=== PATIENT | female | born 1970 | race Caucasian/White ===

== ENCOUNTER 2021-04-04 10:28 | Outpatient (CLI) | payer MEDICARE, MEDICAID, SELFPAY ==
--- NOTE | 2021-04-04 10:33 | MM_ITS ---
WS: [id number] BILATERAL DIGITAL SCREENING MAMMOGRAPHY WITH CAD CLINICAL INFORMATION: SCREENING HISTORY: Screening mammogram. No current complaints. COMPARISON: TECHNIQUE: Bilateral CC and MLO views. FINDINGS: Scattered fibroglandular densities bilaterally. No suspicious focal mass, asymmetry, calcifications, or architectural distortion. No evidence of malignancy. A few punctate calcifications. MM/[id number] IMPRESSION: BI-RADS: 2-Benign FOLLOW UP: 1 Year Follow-up Recommend return to annual screening mammography.
== END 2021-04-04 10:29 | disposition home or self-care (01) ==
LOC: RADSHAW 10:32
PROVIDERS: Family Provider Family Medicine; PCP Family Medicine; Visit Provider Family Medicine
DX: Z12.31 Encounter for screening mammogram for malignant neoplasm of breast (principal)
CPT/HCPCS: 77067

== ENCOUNTER 2022-04-26 12:38 | Outpatient (CLI) | payer MEDICARE, MEDICAID, SELFPAY ==
--- NOTE | 2022-04-26 13:04 | MM_ITS ---
WS: [id number] BILATERAL 3D TOMOSYNTHESIS DIGITAL SCREENING MAMMOGRAPHY WITH CAD CLINICAL INFORMATION: SCREENING HISTORY: Screening mammogram. No current complaints. COMPARISON: April 04, 2021 TECHNIQUE: Bilateral CC and MLO views. FINDINGS: Scattered fibroglandular densities bilaterally. A few incidental punctate calcifications. Incidental lymph node posterior depth RIGHT breast. No suspicious focal mass, asymmetry, calcifications, or arch itectural distortion. No evidence of malignancy. MM/[id number] IMPRESSION: BI-RADS: 2-Benign FOLLOW UP: 1 Year Follow-up Recommend return to annual screening mammography.
== END 2022-04-26 12:39 | disposition home or self-care (01) ==
LOC: RAD 12:38
PROVIDERS: PCP Nurse Practitioner Family; Visit Provider Nurse Practitioner Family
DX: Z12.31 Encounter for screening mammogram for malignant neoplasm of breast (principal)
CPT/HCPCS: 77063; 77067

== ENCOUNTER 2023-03-06 19:01 | Emergency (ER) | payer MEDICARE, MEDICAID, SELFPAY ==
[2023-03-06 19:10] VITALS: BP 136/79; PULSE 102; RESP 18; TEMP 36.7; O2SAT 95; BMI 42.0
--- NOTE | 2023-03-06 19:28 | ED_ITS ---
HPI - Back Pain/Injury General: Chief Complaint: Back Pain/Injury Stated Complaint: lower back pain Time Seen by Provider: 03/06/23 19:13 PFSH ED PFSH: Medical History (Updated 03/06/23 @ 19:29 by Chano Rangel MD) Impacted cerumen of right ear Course Vital Signs: Vital signs: Vital Signs Temperature 98.0 F 03/06/23 19:10 Pulse Rate 102 H 03/06/23 19:10 Respiratory Rate 18 03/06/23 19:10 Blood Pressure 136/79 03/06/23 19:10 Pulse Oximetry 95 03/06/23 19:10 Oxygen Delivery Me thod Room Air 03/06/23 19:10 Discharge Plan Discharge Patient Disposition: Home Clinical Impression: Insect bite Condition: Stable Prescriptions: No Action metformin 1,000 mg tablet extended release 24 hr 1,000 mg PO BID Farxiga 5 mg tablet 5 mg PO DAILY Januvia 25 mg tablet 25 mg PO DAILY levothyroxine [Synthroid] 125 mcg tablet 125 mcg PO DAILY amitriptyline 10 mg tablet 10 mg PO BID lisinopril 5 mg tablet 5 mg PO DAILY alprazolam 0.25 mg tablet 0.25 mg PO DAILY PRN oxybutynin chloride 5 mg tablet 5 mg PO DAILY simvastatin [Zocor] 10 mg tablet 10 mg PO DAILY montelukast 10 mg tablet 10 mg PO DAILY Referrals: Lynnette Gay FNP [Primary Care Provider] - 1-3 days Discharge Diet: Advance as tolerated Discharge Activity: Resume usual activity Patient Instructions: Opioid Safety, Pain Management Coding Level of Care Code ED Physiotherapist'S Assistant for Jayda Solano
[2023-03-06 19:33] VITALS: BP 152/87; PULSE 107; RESP 18; O2SAT 93
--- NOTE | 2023-03-06 19:42 | ED_ITS ---
HPI - Back Pain/Injury General: Chief Complaint: Back Pain/Injury Stated Complaint: lower back pain Time Seen by Provider: 03/06/23 19:13 History of Present Illness: Patient is a 52-year-old female comes to the ED with lower back pain. Patient says symptoms started a week ago. She states that she has been doing a lot of housecleaning, bending and lifting and thinks she might of strained a muscle in her lower back. Denies any fall or trauma to cause back pain. She rates her ba ck pain currently an 8 out of 10. She has been taking Tylenol daily to help with pain. Denies any bladder or bowel incontinence, pelvic anesthesia or any weakness to lower extremities. Associated symptoms: Deny abdominal pain, chills, dysuria, fatigue, fever(s), hematuria, nausea or vomiting Review of Systems Const: Denies: fever(s), chills or fatigue Eyes: Denies: change in vision or eye discomfort ENMT: Denies: throat pain, odynophagia, nasal discharge or nasal congestion Card: Denies: chest pain, palpitations, edema, swelling of feet/ankles, dyspnea on exertion or orthopnea Resp: Denies: dyspnea, productive cough or non-productive cough GI: Denies: abdominal pain, nausea, vomiting, diarrhea, constipation or hematochezia : Denies: flank pain, dysuria or hematuria Musc: Denies: neck pain, back pain or extremity swelling Skin/Breast: Denies: rash or new lesions Neuro: Denies: headache(s), numbness in extremities or weakness in extremities [facility] ED PFSH: Medical History (Updated 03/06/23 @ 23:57 by SHARON Cormier) Impacted cerumen of right ear No pertinent family history Surgical History (Updated 03/06/23 @ 23:57 by SHARON Cormier) No pertinent past surgical history Physical Exam Const: COMMON NORMALS: patient oriented x3 HENMT: COMMON NORMALS: normocephalic HEAD & SCALP: normocephalic MOUTH: Normal oral and palatal mucosa present THROAT: posterior oropharynx normal and uvula midline Neck/C-Spine: COMMON NORMALS: supple GENERAL: Yes normal visual inspection Resp: COMMON NORMALS: normal respiratory effort, No retractions, No use of accessory muscles and clear to auscultation bilaterally AUSCULTATION: clear to auscultation bilaterally Cardio: COMMON NORMALS: regular rate, regular rhythm, S1 normal heart sound present, S2 normal heart sound present, No gallops present (Cardio), No clicks present (Cardio), No murmurs present (Cardio) and Peripheral pulses 2+ throughout RATE: regular rate RHYTHM: regular rhythm HEART SOUNDS: S1 normal heart sound present and S2 normal heart sound present PERIPHERAL PULSES: Peripheral pulses 2+ throughout GI: COMMON NORMALS: Normal to inspection, nondistended, normoactive bowel sounds present, Soft to palpation, non-tender and no masses PALPATION: Yes Soft to palpation : COMMON NORMALS: Yes no CVA tenderness BLADDER/KIDNEY EXAM: Yes no CVA tenderness Back/Pelvis: COMMON NORMALS: no CVA tenderness LUMBAR SPINE/LOWER BACK: No lumbar spinal tenderness and Yes paraspinal muscle tenderness Lumbar paraspinal muscle tenderness: bilateral Extremity: COMMON NORMALS: normal to inspection Neuro: COMMON NORMALS: patient oriented x3 GAIT: Yes Normal gait present Skin: GENERAL SKIN EXAM: dry skin Course Vital Signs: Vital signs: Vital Signs Temperature 98.0 F 03/06/23 19:10 Pulse Rate 101 H 03/06/23 19:57 Respiratory Rate 18 03/06/23 19:57 Blood Pressure 153/100 03/06/23 19:57 Pulse Oximetry 91 03/06/23 19:57 Oxygen Delivery Me thod Room Air 03/06/23 19:33 MDM - Back Pain/Injury Medical Decision Making Patient is a 52-year-old female comes to the ED with lower back pain. Patient says symptoms started a week ago. She states that she has been doing a lot of housecleaning, bending and lifting and thinks she might of strained a muscle in her lower back. Denies any fall or trauma to cause back pain. She rates her back pain currently an 8 out of 10. She has been taking Tylenol daily to help with pain. Denies any bladder or bowel incontinence, pelvic anesthesia or any weakness to lower extremities. Vitals are stable. Bilateral lumbar paraspinal muscle tenderness and no lumbar spinal tenderness. Patient diagnosed with a str ain of lumbar region. She was given a dose of Toradol and a muscle relaxer here in the ED. She is stable for discharge home and told to continue taking her muscle relaxer. Patient told to follow-up with PCP in the next week for reevaluation. Return ED precautions given. Patient understood and agreed with plan. Discharge Plan Discharge Patient Disposition: Home Clinical Impression: Strain of lumbar region Qualifiers: Encounter type: initial encounter Qualified Code(s): S39.012A - Strain of muscle, fascia and tendon of lower back, initial encounter Condition: Stable Prescriptions: No Action metformin 1,000 mg tablet extended release 24 hr 1,000 mg PO BID Farxiga 5 mg tablet 5 mg PO DAILY Januvia 25 mg tablet 25 mg PO DAILY levothyroxine [Synthroid] 125 mcg tablet 125 mcg PO DAILY amitriptyline 10 mg tablet 10 mg PO BID lisinopril 5 mg tablet 5 mg PO DAILY alprazolam 0.25 mg tablet 0.25 mg PO DAILY PRN oxybutynin chloride 5 mg tablet 5 mg PO DAILY simvastatin [Zocor] 10 mg tablet 10 mg PO DAILY montelukast 10 mg tablet 10 mg PO DAILY Discharge Orders: Discharge ED (Routine); Ordered 03/06/23 Ordered By: Vern Breaux Referrals: Lynnette Gay FNP [Primary Care Provider] - 1-3 days Discharge Diet: Regular Discharge Activity: Increase activity as tolerated Patient Instructions: Low Back Strain (ED) Activity Restrictions/Additional Instructions: Follow-up with medical provider as directed in the next 5 to 7 days for reevaluation. Continue taking all home medications as previously prescribed. Stretch lower back muscles daily. You can apply cold pack on sore area of back for about 15 minutes at a time multiple times a day to help with symptoms. Massage lower back muscles as well to help with healing. Your previously prescribed cyclobenzaprine is a muscle relaxer she can take that as prescribed to help with muscle spasms and pain. Return to the ER or your medical provider if condition worsens. Please read and understand discharge instructions. Thank you for choosing [facility] for your healthcare needs today. Please realize this is an emergency room and that we are providing you with a medical screening exam and this may not be complete and all inclusive of all the testing and or work up that you may need to determine your ailment or severity of your illness. It is very important that you follow up as instructed or that you return to the Emergency Department should you have concerns or if your condition changes or worsens in any way. Coding Level of Care Code ED Crystal Report Developer for Jayda Solano
[2023-03-06] MEDS: ketorolac 30 mg/mL INJ IM (19:48)
[2023-03-06] MEDS: orphenadrine 30 mg/mL Inj 2 mL 60 MG IM (19:49)
[2023-03-06 19:57] VITALS: BP 153/100; PULSE 101; RESP 18; O2SAT 91
== END 2023-03-06 20:00 | disposition home or self-care (01) ==
PROVIDERS: Emergency Provider Physician Assistant; PCP Nurse Practitioner Family
DX: S39.012A Strain of muscle, fascia and tendon of lower back, initial encounter (principal); Z79.84 Long term (current) use of oral hypoglycemic drugs; X50.0XXA Overexertion from strenuous movement or load, initial encounter
CPT/HCPCS: 96372; 99284; J1885; J2360

== ENCOUNTER → 2023-05-14 08:30 | Outpatient (BNVA) | payer MEDICARE, MEDICAID, SELFPAY | PROVIDERS: PCP Nurse Practitioner Family; Visit Provider Podiatrist Foot & Ankle Surgery | DX: B35.1 Tinea unguium (principal); I73.9 Peripheral vascular disease, unspecified; E11.42 Type 2 diabetes mellitus with diabetic polyneuropathy; G25.81 Restless legs syndrome; G62.9 Polyneuropathy, unspecified; Z79.84 Long term (current) use of oral hypoglycemic drugs | CPT/HCPCS: 11721; 99204 ==

== ENCOUNTER 2024-07-21 05:01 | Emergency (ER) | payer MEDICAID, MEDICARE, SELFPAY ==
[2024-07-21 05:05] VITALS: PULSE 97; RESP 16; TEMP 36.9; O2SAT 95; BMI 43.2
--- NOTE | 2024-07-21 05:54 | W.ED.EAR ---
HPI - Ear Problem General: Chief complaint: Ear Stated complaint: Left ear pain Time Seen by Provider: 07/21/24 05:15 History of Present Illness: 54-year-old female who woke up an hour prior to arrival with buzzing and flapping in her left ear. She feels like something is in the left ear. Somewhat muffled hearing, but hearing is intact. No drainage. No significant pain. No fever Related Data Home Medications Medication Instructions Recorded Confirmed alprazolam 0.25 mg tablet 0.25 mg PO DAILY PRN 01/19/23 05/14/23 amitriptyline 10 mg tablet 10 mg PO BID 01/19/23 05/14/23 dapagliflozin propanediol 5 mg 5 mg PO DAILY 01/19/23 05/14/23 tablet (Farxiga) levothyroxine 125 mcg tablet 125 mcg PO DAILY 01/19/23 05/14/23 (Synthroid) lisinopril 5 mg tablet 5 mg PO DAILY 01/19/23 05/14/23 metformin 1,000 mg tablet,extended 1,000 mg PO BID 01/19/23 05/14/23 release 24hr (osmotic) montelukast 10 mg tablet 10 mg PO DAILY 01/19/23 05/14/23 oxybutynin chloride 5 mg tablet 5 mg PO DAILY 01/19/23 05/14/23 simvastatin 10 mg tablet (Zocor) 10 mg PO DAILY 01/19/23 05/14/23 sitagliptin phosphate 25 mg tablet 25 mg PO DAILY 01/19/23 05/14/23 (Januvia) Previous Rx's Medication Instructions Recorded ciprofloxacin 0.3 %-dexamethasone 4 drp otic (ear) BID 7 days #7.5 mL 07/21/24 0.1 % ear drops,suspension Allergies Allergy/AdvReac Type Severity Reaction Status Date / Time meperidine [From Demerol] Allergy ALGY-Rash Verified 05/14/23 08:36 Sulfa (Sulfonamide Allergy ALGY-Rash Verified 05/14/23 08:36 Antibiotics) penicillin Allergy rash Uncoded 05/14/23 08:36 [facility] ED PFSH: Medical History No pertinent family history Impacted cerumen of right ear Surgical History No pertinent past surgical history Physical Exam Const: COMMON NORMALS: no acute distress GENERAL APPEARANCE: cooperative; not ill appearing ORIENTATION/CONSCIOUSNESS: Yes awake HENMT: COMMON NORMALS: normocephalic, TM's normal bilaterally and Normal external nose present HEAD & SCALP: normocephalic NOSE: Normal external nose present EXTERNAL AUDITORY CANAL: Abnormal EAC present EAC laterality: left Details: erythema and EAC tenderness TYMPANIC MEMBRANE: TM's normal bilaterally Resp: COMMON NORMALS: normal respiratory effort and clear to auscultation bilaterally EFFORT & INSPECTION: Yes symmetric chest movement AUSCULTATION: clear to auscultation bilaterally Cardio: COMMON NORMALS: regular rate and regular rhythm RATE: regular rate RHYTHM: regular rhythm Course Vital Signs: Vital signs: Vital Signs Temperature 98.5 F 07/21/24 05:05 Pulse Rate 97 07/21/24 05:05 Respiratory Rate 16 07/21/24 05:05 Pulse Oximetry 95 07/21/24 05:05 Oxygen Delivery Me thod Room Air 07/21/24 05:05 MDM - Ear Medical Decision Making No foreign body identified in the canal. There is mild serum. There are some swelling, with irritation. The patient has pain with movement of the canal. Canal is irrigated. She will be prescribed Ciprodex for the next 7 days. Close outpatient follow-up. No radiology studies performed this visit Discharge Plan Discharge Patient Disposition: Home Clinical Impression: Otitis externa Condition: Stable Prescriptions: New ciprofloxacin-dexamethasone 0.3-0.1 % drops,suspension 4 drp otic (ear) BID 7 Days Qty: 7.5 0RF No Action metformin 1,000 mg tablet extended release 24 hr 1,000 mg PO BID Farxiga 5 mg tablet 5 mg PO DAILY Januvia 25 mg tablet 25 mg PO DAILY levothyroxine [Synthroid] 125 mcg tablet 125 mcg PO DAILY amitriptyline 10 mg tablet 10 mg PO BID lisinopril 5 mg tablet 5 mg PO DAILY alprazolam 0.25 mg tablet 0.25 mg PO DAILY PRN oxybutynin chloride 5 mg tablet 5 mg PO DAILY simvastatin [Zocor] 10 mg tablet 10 mg PO DAILY montelukast 10 mg tablet 10 mg PO DAILY Discharge Orders: Discharge ED (Routine); Ordered 07/21/24 Ordered By: Melo Nayak Referrals: Lynnette Gay FNP [Primary Care Provider] - 4-7 days Patient Instructions: Otitis Externa - Adult, Opioid Safety, Pain Management Activity Restrictions/Additional Instructions: Use the drops as prescribed. Follow-up with your doctor in a few days to ensure ear is improving. Return for problems. Coding Level of Care Code ED Floor Technician for Jayda Solano
[2024-07-21 07:12] VITALS: BP 163/107; PULSE 79; O2SAT 98
== END 2024-07-21 07:12 | disposition home or self-care (01) ==
PROVIDERS: Emergency Provider Emergency Medicine; PCP Nurse Practitioner Family
DX: H60.92 Unspecified otitis externa, left ear (principal)
CPT/HCPCS: 99283

== ENCOUNTER 2024-07-28 00:31 | Emergency (ER) | payer MEDICARE, MEDICAID, SELFPAY ==
[2024-07-28 00:37] VITALS: BP 141/98; PULSE 87; RESP 18; TEMP 36.8; O2SAT 94
--- NOTE | 2024-07-28 01:46 | XRR_ITS ---
PROCEDURE INFORMATION: Exam: XR Right Knee Exam date and time: 07/28/2024 1:47 AM Age: 54 years old Clinical indication: Injury or trauma; Fall; Blunt trauma; Right; Patient HX: Patient tripped and struck RT knee against metal frame of her bed. Small linear laceration across patella. ; Additional info: Fall struck knee, knee pain TECHNIQUE: Imaging protocol: Radiologic exam of the right knee. Views: 3 views. COMPARISON: No relevant prior studies available. FINDINGS: Bones/joints: No significant degenerative change. No acute fracture. Small articular effusion is present. Soft tissues: Normal. Other findings: No aggressive lesion. XR/XR knee RT 3V* [id number] IMPRESSION: 1. No acute osseous abnormality. 2. Small nonspecific articular effusion is present.
--- NOTE | 2024-07-28 01:47 | W.ED.EXTPRO ---
HPI - Extremity Problem General: Chief complaint: Extremity Injury, Lower Stated complaint: fall- right knee pain Time Seen by Provider: 07/28/24 01:29 History of Present Illness: 54-year-old female presenting with right knee pain after a fall. She was walking back from the bathroom to bed in the dark, and tripped. She struck her knee on the frame. She has an abrasion, and pain, worsening with weightbearing. No other injuries. She did not hit her head. Related Data Home Medications Medication Instructions Recorded Confirmed alprazolam 0.25 mg tablet 0.25 mg PO DAILY PRN 01/19/23 05/14/23 amitriptyline 10 mg tablet 10 mg PO BID 01/19/23 05/14/23 dapagliflozin propanediol 5 mg 5 mg PO DAILY 01/19/23 05/14/23 tablet (Farxiga) levothyroxine 125 mcg tablet 125 mcg PO DAILY 01/19/23 05/14/23 (Synthroid) lisinopril 5 mg tablet 5 mg PO DAILY 01/19/23 05/14/23 metformin 1,000 mg tablet,extended 1,000 mg PO BID 01/19/23 05/14/23 release 24hr (osmotic) montelukast 10 mg tablet 10 mg PO DAILY 01/19/23 05/14/23 oxybutynin chloride 5 mg tablet 5 mg PO DAILY 01/19/23 05/14/23 simvastatin 10 mg tablet (Zocor) 10 mg PO DAILY 01/19/23 05/14/23 sitagliptin phosphate 25 mg tablet 25 mg PO DAILY 01/19/23 05/14/23 (Januvia) Previous Rx's Medication Instructions Recorded ketorolac 10 mg tablet 10 mg PO TID PRN pain #10 tabs 07/28/24 Allergies Allergy/AdvReac Type Severity Reaction Status Date / Time meperidine [From Demerol] Allergy ALGY-Rash Verified 07/28/24 00:42 Sulfa (Sulfonamide Allergy ALGY-Rash Verified 07/28/24 00:42 Antibiotics) penicillin Allergy rash Uncoded 07/28/24 00:42 [facility] ED PFSH: Medical History No pertinent family history Impacted cerumen of right ear Surgical History No pertinent past surgical history Physical Exam Const: COMMON NORMALS: no acute distress GENERAL APPEARANCE: cooperative; not ill appearing and not frail appearing HENMT: COMMON NORMALS: normocephalic, atraumatic and Normal external nose present HEAD & SCALP: normocephalic and atraumatic FACE & SINUS: normal facial exam and face symmetric NOSE: Normal external nose present Eye: COMMON NORMALS: Equal, round and reactive pupils present and EOMs intact bilaterally PUPIL: Yes Equal, round and reactive pupils present Neck/C-Spine: GENERAL: Yes trachea midline Chest: CHEST: Yes Symmetrical chest wall rise Resp: COMMON NORMALS: normal respiratory effort, No retractions, No use of accessory muscles and clear to auscultation bilaterally AUSCULTATION: clear to auscultation bilaterally Cardio: COMMON NORMALS: regular rate and regular rhythm RATE: regular rate RHYTHM: regular rhythm GI: COMMON NORMALS: Normal to inspection, nondistended, normoactive bowel sounds present Extremity: NARRATIVE EXTREMITY EXAM: Examination the right lower extremity reveals no knee deformity. There is a mild knee effusion. There is an abrasion to the anterior knee that is small. Tenderness over the patella. No joint line tenderness. Extension mechanism is intact. There is some pain with flexion past 45 degrees Neuro: MALLIKA COMA SCALE: document GCS findings Mallika coma scale eye opening: Spontaneous [place] coma scale verbal response: Orientated [place] coma scale motor response: Obey commands Mallika coma scale total score: 15 SENSORY EXAM: Yes extremities (intact) Psych: COMMON NORMALS: speech normal SPEECH: Yes normal speech Skin: COMMON NORMALS: no rashes or lesions noted GENERAL SKIN EXAM: no rashes or lesions noted Course Vital Signs: Vital signs: Vital Signs Temperature 98.2 F 07/28/24 00:37 Pulse Rate 87 07/28/24 00:37 Respiratory Rate 18 07/28/24 00:37 Blood Pressure 141/98 07/28/24 00:37 Pulse Oximetry 94 07/28/24 00:37 MDM - Extremity (Nontraumatic) Medical Decision Making Knee x-ray reveals a small knee joint effusion. No fracture or deformity otherwise. She is given medication here. Crutches for weightbearing, then advance to weightbearing as tolerated. Outpatient follow-up. XR interpretation done by ED provider, pending radiology final review Discharge Plan Discharge Patient Disposition: Home Clinical Impression: Contusion of right knee, Abrasion of knee Condition: Stable Prescriptions: New ketorolac 10 mg tablet 10 mg PO TID PRN (Reason: pain) Qty: 10 0RF No Action metformin 1,000 mg tablet extended release 24 hr 1,000 mg PO BID Farxiga 5 mg tablet 5 mg PO DAILY Januvia 25 mg tablet 25 mg PO DAILY levothyroxine [Synthroid] 125 mcg tablet 125 mcg PO DAILY amitriptyline 10 mg tablet 10 mg PO BID lisinopril 5 mg tablet 5 mg PO DAILY alprazolam 0.25 mg tablet 0.25 mg PO DAILY PRN oxybutynin chloride 5 mg tablet 5 mg PO DAILY simvastatin [Zocor] 10 mg tablet 10 mg PO DAILY montelukast 10 mg tablet 10 mg PO DAILY Discharge Orders: Discharge ED (Routine); Ordered 07/28/24 Ordered By: Melo Nayak Referrals: Lynnette Gay FNP [Primary Care Provider] - 1-3 days Patient Instructions: Knee Pain (ED), Opioid Safety, Pain Management Activity Restrictions/Additional Instructions: You may crutch for weightbearing or begin to bear weight fully as tolerated as your pain improves. Ice for swelling. Medication for pain and swelling. See your doctor this coming week. Call for an appointment. Coding Level of Care Code ED Chartered Financial Analyst for Jayda Solano
[2024-07-28] MEDS: oxyCODONE-APAP 5-325 mg Tablet 2 TAB PO (02:34)
[2024-07-28 02:35] VITALS: BP 136/66; PULSE 79; O2SAT 97
== END 2024-07-28 02:36 | disposition home or self-care (01) ==
PROVIDERS: Emergency Provider Emergency Medicine; PCP Nurse Practitioner Family
DX: S80.01XA Contusion of right knee, initial encounter (principal); Z79.84 Long term (current) use of oral hypoglycemic drugs; W01.0XXA Fall on same level from slipping, tripping and stumbling without subsequent striking against object, initial encounter
CPT/HCPCS: 73562; 99283

== ENCOUNTER 2024-09-03 13:59 | Outpatient (CLI) | payer MEDICARE, MEDICAID, SELFPAY ==
--- NOTE | 2024-09-03 14:04 | MM_ITS ---
WS: [id number] BILATERAL 3D TOMOSYNTHESIS DIGITAL SCREENING MAMMOGRAPHY WITH CAD CLINICAL INFORMATION: SCREENING HISTORY: Screening mammogram. No current complaints. COMPARISON: 2021 TECHNIQUE: Bilateral CC and MLO views. FINDINGS: Scattered fibroglandular densities bilaterally. No suspicious focal mass, asymmetry, calcifications, or architectural distortion. No evidence of malignancy. Incidental punctate and lucent centered calci fications. MM/MM [facility] tomosynthesis [id number] IMPRESSION: DENSITY: There are scattered areas of fibroglandular density. BI-RADS: 2 - Benign. FOLLOW UP: 1 Year Follow-up Recommend return to annual screening mammography.
== END 2024-09-03 14:00 | disposition home or self-care (01) ==
LOC: RAD 14:00
PROVIDERS: PCP Nurse Practitioner Family; Visit Provider Nurse Practitioner Family
DX: Z12.31 Encounter for screening mammogram for malignant neoplasm of breast (principal); R92.323 Mammographic fibroglandular density, bilateral breasts; R92.1 Mammographic calcification found on diagnostic imaging of breast
CPT/HCPCS: 77063; 77067

== ENCOUNTER 2025-02-11 14:43 | Emergency (ER) | payer MEDICARE, MEDICAID, SELFPAY ==
[2025-02-11 14:44] VITALS: BP 142/89; PULSE 87; TEMP 36.7; O2SAT 97
[2025-02-11 15:04] VITALS: BP 146/80; PULSE 88; O2SAT 92
--- NOTE | 2025-02-11 15:12 | XR_ITS ---
WS: [id number] Right arm and humerus, 2 views, 02/11/2025 Clinical Data: r arm pain Comparison: Right shoulder, 02/20/2050 Findings: No fractures or dislocations are seen. The shaft of the humerus is intact. The soft tissues are normal. XR/[place] [id number] Impression: Negative right arm and humerus.
--- NOTE | 2025-02-11 15:12 | XR_ITS ---
WS: [id number] Thoracic spine, 3 views, 02/11/2025 Clinical Data: upper back pain Comparison: None. Findings: No compression fractures are seen. The disc heights are normal. The paravertebral regions are unremarkable. There is moderate osteoarthritis of the middle and lower thoracic vertebral bodies. XR/XR thoracic spine 3V* [id number] Impression: Moderate osteoarthritis of the thoracic vertebral bodies.
--- NOTE | 2025-02-11 15:21 | W.ED.BACK ---
HPI - Back Pain/Injury General: Chief Complaint: Back Pain/Injury Stated Complaint: fall / dizzy Time Seen by Provider: 02/11/25 15:12 History of Present Illness: 54-year-old female presents emergency room complaining of a fall. She lives at home alone she reports she falls frequently she stumbles often and falls. She complained of hurting her right knee as well as her right upper arm. She is also concerned she feels like she has something in her left ear and has been itching. She did not strike her head she did not lose consciousness she denies chest or abdominal pain. Associated symptoms: Deny abdominal pain, chills, dysuria, fever(s) or urinary urgency Related Data Home Medications ?Medication ?Instructions ?Recorded ?Confirmed alprazolam 0.25 mg tablet 0.25 mg PO DAILY PRN Anxiety 01/19/23 02/11/25 amitriptyline 10 mg tablet 10 mg PO BID 01/19/23 02/11/25 dapagliflozin propanediol 5 mg 5 mg PO DAILY 01/19/23 02/11/25 tablet (Farxiga) metformin 1,000 mg tablet,extended 1,000 mg PO BID 01/19/23 02/11/25 release 24hr (osmotic) montelukast 10 mg tablet 10 mg PO DAILY 01/19/23 02/11/25 sitagliptin phosphate 25 mg tablet 25 mg PO DAILY 01/19/23 02/11/25 (Januvia) semaglutide 1 mg/dose (4 mg/3 mL) 2 mg SUBCUT Q7D 10/13/24 02/11/25 subcutaneous pen injector (Ozempic) acetaminophen 500 mg tablet 500 mg PO Q6H PRN Fever Or Pain 02/11/25 02/11/25 (Tylenol Extra Strength) aspirin 81 mg tablet,delayed 81 mg PO DAILY 02/11/25 02/11/25 release (Lorie Low Dose Aspirin) insulin glargine 100 unit/mL (3 10 unit SUBCUT BEDTIME 02/11/25 02/11/25 mL) subcutaneous pen (Lantus Solostar U-100 Insulin) levothyroxine 200 mcg tablet 200 mcg PO DAILY 02/11/25 02/11/25 losartan 100 1 tab PO DAILY 02/11/25 02/11/25 mg-hydrochlorothiazide 25 mg tablet oxybutynin chloride 15 mg 15 mg PO DAILY 02/11/25 02/11/25 tablet,extended release 24 hr ropinirole 4 mg tablet 8 mg PO DAILY 02/11/25 02/11/25 rosuvastatin 40 mg tablet 40 mg PO BEDTIME 02/11/25 02/11/25 Allergies Allergy/AdvReac Type Severity Reaction Status Date / Time meperidine (From Demerol) Allergy ALGY-Rash Verified 10/13/24 13:55 Sulfa (Sulfonamide Allergy ALGY-Rash Verified 10/13/24 13:55 Antibiotics) penicillin Allergy rash Uncoded 10/13/24 13:55 Review of Systems Const: Denies: fever(s) or chills Card: Denies: chest pain Resp: Denies: dyspnea GI: Denies: abdominal pain : Denies: dysuria, urinary frequency or urinary urgency Musc: Reports: joint pain; Denies: neck pain or back pain Skin/Breast: Denies: rash PFSH ED PFSH: Medical History No pertinent family history Impacted cerumen of right ear Surgical History No pertinent past surgical history Social History Smoking and tobacco/nicotine status: current every day tobacco/nicotine user (1/2 ppd) Physical Exam Const: GENERAL APPEARANCE: cooperative ORIENTATION/CONSCIOUSNESS: Yes awake, Yes oriented to person, Yes oriented to place and Yes oriented to time HENMT: COMMON NORMALS: normocephalic, atraumatic, hearing grossly normal bilaterally, external ears normal, EAC's normal, TM's normal bilaterally and Normal nasal mucous membranes and turbinates present HEAD & SCALP: normocephalic and atraumatic NOSE: Normal nasal mucous membranes and turbinates present EXTERNAL EAR: Yes external ears normal EXTERNAL AUDITORY CANAL: EAC's normal TYMPANIC MEMBRANE: TM's normal bilaterally Eye: COMMON NORMALS: Equal, round and reactive pupils present, EOMs intact bilaterally, conjunctivae normal and no scleral icterus CONJUNCTIVA: Yes conjunctivae normal PUPIL: Yes Equal, round and reactive pupils present Resp: COMMON NORMALS: normal respiratory effort, No retractions, No use of accessory muscles and clear to auscultation bilaterally AUSCULTATION: clear to auscultation bilaterally Cardio: COMMON NORMALS: regular rate, regular rhythm and No murmurs present (Cardio) RATE: regular rate RHYTHM: regular rhythm GI: COMMON NORMALS: Soft to palpation and No hepatosplenomegaly present AUSCULTATION: Yes normoactive bowel sounds PALPATION: Yes Soft to palpation, No Tenderness to palpation present (GI), No Guarding due to palpation present (GI) and Yes No hepatosplenomegaly present Extremity: COMMON NORMALS: normal to inspection, capillary refill normal, no clubbing, cyanosis or edema, no calf tenderness and no pedal edema Neuro: SENSORIUM/ORIENTATION: Yes oriented to person, Yes oriented to place and Yes oriented to time Skin: COMMON NORMALS: no rashes or lesions noted GENERAL SKIN EXAM: no rashes or lesions noted Course Vital Signs: Vital signs: Vital Signs Temperature 98.0 F 02/11/25 14:44 Pulse Rate 88 02/11/25 15:04 Blood Pressure 146/80 02/11/25 15:04 Pulse Oximetry 92 02/11/25 15:04 Oxygen Delivery Me thod Room Air 02/11/25 14:44 MDM - Back Pain/Injury Medical Decision Making X-rays unremarkable. Patient ambulates out difficulty. Labs Radiology Impressions Humerus X-Ray 02/11/25 15:12 Impression: Negative right arm and humerus. Thoracic Spine X-Ray 02/11/25 15:12 Impression: Moderate osteoarthritis of the thoracic vertebral bodies. Knee X-Ray 02/11/25 15:37 Impression: Negative right knee. All radiology interpretation(s) finalized by discharge Discharge Plan Discharge Patient Disposition: Home Clinical Impression: Falls frequently, Arm pain, Knee pain Condition: Stable Prescriptions: No Action Ozempic 1 mg/dose (4 mg/3 mL) pen injector 2 mg SUBCUT Q7D metformin 1,000 mg tablet extended release 24 hr 1,000 mg PO BID Farxiga 5 mg tablet 5 mg PO DAILY Januvia 25 mg tablet 25 mg PO DAILY amitriptyline 10 mg tablet 10 mg PO BID alprazolam 0.25 mg tablet 0.25 mg PO DAILY PRN (Reason: Anxiety) montelukast 10 mg tablet 10 mg PO DAILY oxybutynin chloride 15 mg tablet extended release 24hr 15 mg PO DAILY aspirin [Lorie Low Dose Aspirin] 81 mg Tablet,Delayed Release (Dr/Ec) 81 mg PO DAILY acetaminophen [Tylenol Extra Strength] 500 mg Tablet 500 mg PO Q6H PRN (Reason: Fever Or Pain) losartan-hydrochlorothiazide 100-25 mg tablet 1 tab PO DAILY levothyroxine 200 mcg tablet 200 mcg PO DAILY ropinirole 4 mg tablet 8 mg PO DAILY rosuvastatin 40 mg tablet 40 mg PO BEDTIME insulin glargine [Lantus Solostar U-100 Insulin] 100 unit/mL (3 mL) insulin pen 10 unit SUBCUT BEDTIME Discharge Orders: Discharge ED (Routine); Ordered 02/11/25 Ordered By: Seven Bautista Referrals: Shelia Hammer MD [Staff Physician, Family Practice] Referral Note: Call to establish as a new patient Discharge Diet: Usual diet Discharge Activity: Resume usual activity Patient Instructions: Opioid Safety, Pain Management Activity Restrictions/Additional Instructions: Thank you for choosing [facility] for your healthcare needs today. It is very important that you follow up as instructed or that you return to the Emergency Department should you have concerns or if your condition changes or worsens in any way. You are seen emergency room after a fall. X-ray does not show any acute fractures. Use tylenol and over the counter antiinflamatories as needed. Print Language: Icelandic Coding Level of Care Code ED [place] Singer for Jayda Solano
--- NOTE | 2025-02-11 15:37 | XR_ITS ---
WS: [id number] Right knee, 3 views, 02/11/2025 Clinical Data: pain Comparison: Right knee, 07/28/2024 Findings: No fractures or dislocations are seen. The joint spaces are normal. The patella is intact. The soft tissues are unremarkable. XR/XR knee RT 3V* [id number] Impression: Negative right knee.
[2025-02-11 17:16] VITALS: BP 149/115; PULSE 83; RESP 18; O2SAT 96
== END 2025-02-11 17:15 | disposition home or self-care (01) ==
PROVIDERS: Emergency Provider Family Medicine; PCP Nurse Practitioner Family
DX: M79.601 Pain in right arm (principal); M54.9 Dorsalgia, unspecified; M25.561 Pain in right knee; F17.210 Nicotine dependence, cigarettes, uncomplicated; R29.6 Repeated falls; Z79.4 Long term (current) use of insulin; Z79.82 Long term (current) use of aspirin; Z79.84 Long term (current) use of oral hypoglycemic drugs
CPT/HCPCS: 72072; 73060; 73562; 99284

== ENCOUNTER 2025-02-23 16:23 | Emergency (ER) | payer MEDICARE, MEDICAID, SELFPAY ==
[2025-02-23 16:27] VITALS: BP 147/91; PULSE 83; TEMP 36.7; O2SAT 92; BMI 43.9
--- NOTE | 2025-02-23 17:13 | W.ED.BACK ---
HPI - Back Pain/Injury General: Chief Complaint: Back Pain/Injury Stated Complaint: low back pain Time Seen by Provider: 02/23/25 17:02 Source: patient Mode of arrival: EMS Limitations: no limitations History of Present Illness: Patient is a 54-year-old female presents to ED today via EMS for evaluation of back pain. Patient states she has frequent falls and states she has fallen twice over the past 2 days. She also states she rolled off the couch. Patient has chronic back pain and feels like her pain is worse now. She reports chronic urinary incontinence that has been going on for years . She reportedly has not seen anybody for this issue. She also states she has been having intermittent fecal incontinence for 3 months or so. She denies numbness, tingling, loss of sensation to her legs. Patient does live alone. MD elicited complaint: back pain Pertinent past history: prior back pain Onset (ago): day(s) Timing: constant Severity: moderate Similar Symptoms Previously: Yes Location: lumbar spine Radiation: none Exacerbating factors: walking Relieving factors: none Associated symptoms: Reports fecal incontinence; Deny abdominal pain, chills, dysuria, fatigue, fever(s), syncope or vomiting Work related injury: No Related Data Home Medications ?Medication ?Instructions ?Recorded ?Confirmed alprazolam 0.25 mg tablet 0.25 mg PO DAILY PRN Anxiety 01/19/23 02/11/25 amitriptyline 10 mg tablet 10 mg PO BID 01/19/23 02/11/25 dapagliflozin propanediol 5 mg 5 mg PO DAILY 01/19/23 02/11/25 tablet (Farxiga) metformin 1,000 mg tablet,extended 1,000 mg PO BID 01/19/23 02/11/25 release 24hr (osmotic) montelukast 10 mg tablet 10 mg PO DAILY 01/19/23 02/11/25 sitagliptin phosphate 25 mg tablet 25 mg PO DAILY 01/19/23 02/11/25 (Januvia) semaglutide 1 mg/dose (4 mg/3 mL) 2 mg SUBCUT Q7D 10/13/24 02/11/25 subcutaneous pen injector (Ozempic) acetaminophen 500 mg tablet 500 mg PO Q6H PRN Fever Or Pain 02/11/25 02/11/25 (Tylenol Extra Strength) aspirin 81 mg tablet,delayed 81 mg PO DAILY 02/11/25 02/11/25 release (Lorie Low Dose Aspirin) insulin glargine 100 unit/mL (3 10 unit SUBCUT BEDTIME 02/11/25 02/11/25 mL) subcutaneous pen (Lantus Solostar U-100 Insulin) levothyroxine 200 mcg tablet 200 mcg PO DAILY 02/11/25 02/11/25 losartan 100 1 tab PO DAILY 02/11/25 02/11/25 mg-hydrochlorothiazide 25 mg tablet oxybutynin chloride 15 mg 15 mg PO DAILY 02/11/25 02/11/25 tablet,extended release 24 hr ropinirole 4 mg tablet 8 mg PO DAILY 02/11/25 02/11/25 rosuvastatin 40 mg tablet 40 mg PO BEDTIME 02/11/25 02/11/25 Previous Rx's ?Medication ?Instructions ?Recorded cefdinir 300 mg capsule 300 mg PO BID 10 days #20 caps 02/23/25 Allergies Allergy/AdvReac Type Severity Reaction Status Date / Time meperidine (From Demerol) Allergy ALGY-Rash Verified 02/23/25 16:36 Sulfa (Sulfonamide Allergy ALGY-Rash Verified 02/23/25 16:36 Antibiotics) penicillin Allergy rash Uncoded 02/23/25 16:36 Review of Systems Const: Denies: fever(s), chills, body aches, fatigue or malaise Card: Denies: chest pain, palpitations, lightheadedness, syncope or pre-syncope Resp: Denies: dyspnea GI: Reports: fecal incontinence; Denies: abdominal pain or vomiting : Reports: urinary incontinence; Denies: flank pain or dysuria Musc: Reports: back pain; Denies: neck pain, extremity pain, extremity swelling, joint pain, joint swelling or joint redness Skin/Breast: Denies: rash Neuro: Reports: frequent falls; Denies: headache(s), numbness in extremities, sensory changes, lack of coordination, dizziness, confusion, behavioral changes, Slurred speech present, difficulty communicating thoughts or seizure-like activity PFS ED PFSH: Medical History No pertinent family history Impacted cerumen of right ear Surgical History No pertinent past surgical history Social History Smoking and tobacco/nicotine status: current every day tobacco/nicotine user (1/2 ppd) Physical Exam Const: COMMON NORMALS: no acute distress, patient oriented x3, no limitations, alert and well nourished GENERAL APPEARANCE: cooperative and appears older than stated age NUTRITIONAL APPEARANCE: obese morbidly obese (BMI 43.9) ORIENTATION/CONSCIOUSNESS: Yes awake, Yes oriented to person, Yes oriented to place and Yes oriented to time HENMT: COMMON NORMALS: normocephalic and atraumatic HEAD & SCALP: normal to inspection, normocephalic and atraumatic FACE & SINUS: normal facial exam and face symmetric Eye: COMMON NORMALS: Equal, round and reactive pupils present and EOMs intact bilaterally GENERAL EYE: appearance normal, both eyes and all related structures and normal light reflex PUPIL: Yes Equal, round and reactive pupils present DIRECT OPHTHALMOSCOPY: Yes normal light reflex Neck/C-Spine: COMMON NORMALS: full ROM GENERAL: Yes normal visual inspection CERVICAL SPINE: Yes cervical ROM normal Chest: COMMONS NORMALS: normal inspection of the chest and normal palpation of entire chest wall Resp: COMMON NORMALS: normal respiratory effort and clear to auscultation bilaterally AUSCULTATION: clear to auscultation bilaterally Cardio: COMMON NORMALS: regular rate and regular rhythm RATE: regular rate RHYTHM: regular rhythm GI: COMMON NORMALS: Normal to inspection, nondistended, normoactive bowel sounds present INSPECTION: Yes central obesity and Yes Abdominal panniculus present : COMMON NORMALS: Yes no CVA tenderness BLADDER/KIDNEY EXAM: Yes no CVA tenderness Back/Pelvis: COMMON NORMALS: no CVA tenderness and straight leg raise negative bilaterally LUMBAR SPINE/LOWER BACK: Yes lumbar spinal tenderness SACROILIAC JOINTS: Yes SI joints normal SACRUM: no tenderness COCCYX: no tenderness Extremity: COMMON NORMALS: capillary refill normal, no calf tenderness and no pedal edema NARRATIVE EXTREMITY EXAM: chronic stasis changes to bilateral LE/dependent rubor; she has easily palpable DP/PT pulses GENERAL: Yes normal exam except as noted Neuro: MALLIKA COMA SCALE: document GCS findings [place] coma scale eye opening: Spontaneous Mallika coma scale verbal response: Orientated [place] coma scale motor response: Obey commands [place] coma scale total score: 15 COMMON NORMALS: patient oriented x3, CN's II-XII intact bilaterally, moves all extremities, no focal motor deficits and no sensory deficits noted SENSORIUM/ORIENTATION: Yes alert, Yes oriented to person, Yes oriented to place and Yes oriented to time Course Vital Signs: Vital signs: Vital Signs Temperature 98.1 F 02/23/25 16:27 Pulse Rate 83 02/23/25 16:27 Blood Pressure 147/91 02/23/25 16:27 Pulse Oximetry 92 02/23/25 16:27 Oxygen Delivery Me thod Room Air 02/23/25 16:27 MDM - Back Pain/Injury Medical Decision Making Patient is 54-year-old female here for acute on chronic lower back pain. She has had multiple falls recently. CT scan showing a fracture through her L2 transverse process fracture although it looked subacute. She does have degenerative changes at L5-S1. Patient has chronic fecal and urinary incontinence. She is significantly deconditioned for her age. She was ambulatory here with a walker. She wants to go home. Blood work overall is nonactionable. She does have minor elevations to her LFTs and I told her I would like her to follow-up with primary care for. She is requesting a primary care provider so case management referral was placed for this. UA does look suspicious for infection with 2+ blood, 1+ leukocyte esterase, and 21-50 WBCs. Patient will be placed on antibiotics for this. Given her fall risk, I do not want to place her on controlled pain medication. Recommend follow-up with primary care. Return to ED precautions discussed. Medical Records I reviewed the patient's medical records. Labs I reviewed the patient's lab results. 02/23/25 18:01 02/23/25 18:01 Radiology Impressions Lumbar Spine CT 02/23/25 17:29 IMPRESSION: 1. Fracture through the left L2 transverse process, likely subacute in age. No vertebral body compression fracture seen. 2. Degenerative disc disease and spondylosis at L5-S1 with [id number] central canal stenosis and moderate to severe bilateral neural foraminal stenosis secondary to posterior osteophytic spurring, broad-based disc bulge, and facet joint arthropathy. Laboratory Results WBC 11.86 10^3/uL (3.29-11.43) H 02/23/25 18:01 RBC 4.70 10^6/uL (3.85-5.65) 02/23/25 18: Hgb 15.40 g/dL (11.27-16.99) 02/23/25 18: Hct 45.7 % (36-47) 02/23/25 18: MCV 97.2 fl (85-98) 02/23/25 18: MCH 32.8 pg (27-33) 02/23/25 18: MCHC 33.7 g/dL (30-55) 02/23/25 18: RDW 12.6 % (12.1-15.1) 02/23/25 18: Plt Count 330 10^3/cmm (157-399) 02/23/25 18: MPV 10.5 fL (7.4-10.4) H 02/23/25 18: Neut % (Auto) 61.5 % 02/23/25 18: Lymph % (Auto) 29.3 % 02/23/25 18: [place] % (Auto) 6.4 % 02/23/25 18: Eos % (Auto) 1.8 % 02/23/25 18: Baso % (Auto) 0.7 % 02/23/25 18: Neut # (Auto) 7.29 10^3/uL (1.8-7.7) 02/23/25 18: Lymph # (Auto) 3.5 10^3/uL (0.8-4.8) 02/23/25 18: [place] # (Auto) 0.8 10^3/uL (0.2-0.9) 02/23/25 18: Eos # (Auto) 0.2 10^3/uL (0.0-0.8) 02/23/25 18: Baso # (Auto) 0.1 10^3/uL (0.0-0.1) 02/23/25 18: Nucleated RBC % (auto) 0 % 02/23/25 18: Nucleated RBCs # 0.0 /100WBC 02/23/25 18: Sodium 136 mmol/L (136-145) 02/23/25 18: Potassium 3.6 mmol/L (3.5-5.1) 02/23/25 18: Chloride 95 mmol/L (98-107) L 02/23/25 18: Carbon Dioxide 25 mmol/L (22-29) 02/23/25 18: Anion Gap 19.6 (5-19) H 02/23/25 18: BUN 19 mg/dL (6-20) 02/23/25 18: Creatinine 1.1 mg/dL (0.5-0.9) H 02/23/25 18: GFR Calculation 51.6 mL/min (90-130) L 02/23/25 18: Glucose 173 mg/dL (65-115) H 02/23/25 18: Calculated Osmolality 288 mOsm/kg (285-295) 02/23/25 18: Calcium 10.1 mg/dL (8.5-10.5) 02/23/25 18: Total Bilirubin 1.1 mg/dL (0.15-1.2) 02/23/25 18: AST 79 U/L (0-32) H 02/23/25 18: ALT 34 U/L (0-33) H 02/23/25 18: Alkaline Phosphatase 121 U/L (35-105) H 02/23/25 18:01 Total Protein 7.2 g/dL (6.6-8.7) 02/23/25 18: Albumin 4.2 g/dL (3.5-5.2) 02/23/25 18: Globulin 3.0 g/dL (1.3-4.6) 02/23/25 18: Urine Color Yellow (Yellow) 02/23/25 18: Urine Appearance Clear (CLEAR) 02/23/25 18: Urine pH 6.0 (5-7) 02/23/25 18: Ur Specific [place] 1.008 (1.005-1.030) 02/23/25 18: Urine Protein 3+ (Negative) A 02/23/25 18: Urine Glucose (UA) Negative (Normal) 02/23/25 18: Urine Ketones Negative (Negative) 02/23/25 18: Urine Blood 2+ (Negative) A 02/23/25 18: Urine Nitrate Negative (Negative) 02/23/25 18: Urine Bilirubin Negative (Negative) 02/23/25 18: Urine Urobilinogen 0.2 mg/dL (Negative) 02/23/25 18:11 Ur Leukocyte Esterase 1+ (Negative) A 02/23/25 18:11 Urine RBC 0-2 /hpf (0-2) 02/23/25 18:11 Urine WBC 21-50 /hpf (0-5) H 02/23/25 18:11 Ur Squamous Epith Cells 0-5 /hpf (0-5) 02/23/25 18:11 Amorphous Sediment Not Reportable 02/23/25 18:11 Urine Bacteria Trace /hpf (NONE) 02/23/25 18:11 Hyaline Casts 1.21 /lpf 02/23/25 18:11 All radiology interpretation(s) finalized by discharge Discharge Plan Discharge Patient Disposition: Home Clinical Impression: Closed fracture of transverse process of lumbar vertebra, UTI (urinary tract infection) Condition: Stable Prescriptions: New cefdinir 300 mg capsule 300 mg PO BID 10 Days Qty: 20 0RF No Action Ozempic 1 mg/dose (4 mg/3 mL) pen injector 2 mg SUBCUT Q7D metformin 1,000 mg tablet extended release 24 hr 1,000 mg PO BID Farxiga 5 mg tablet 5 mg PO DAILY Januvia 25 mg tablet 25 mg PO DAILY amitriptyline 10 mg tablet 10 mg PO BID alprazolam 0.25 mg tablet 0.25 mg PO DAILY PRN (Reason: Anxiety) montelukast 10 mg tablet 10 mg PO DAILY oxybutynin chloride 15 mg tablet extended release 24hr 15 mg PO DAILY aspirin [Lorie Low Dose Aspirin] 81 mg Tablet,Delayed Release (Dr/Ec) 81 mg PO DAILY acetaminophen [Tylenol Extra Strength] 500 mg Tablet 500 mg PO Q6H PRN (Reason: Fever Or Pain) losartan-hydrochlorothiazide 100-25 mg tablet 1 tab PO DAILY levothyroxine 200 mcg tablet 200 mcg PO DAILY ropinirole 4 mg tablet 8 mg PO DAILY rosuvastatin 40 mg tablet 40 mg PO BEDTIME insulin glargine [Lantus Solostar U-100 Insulin] 100 unit/mL (3 mL) insulin pen 10 unit SUBCUT BEDTIME Discharge Orders: Discharge ED (Routine); Ordered 02/23/25 Ordered By: Sheryl Thompson Other Ambulatory Orders: DME: Rey (Order) Location: None Selected Ordered By: Sheryl Thompson Referrals: Lynnette Gay FNP [Primary Care Provider, Unknown] Print Language: Mauritanian Coding Level of Care Code ED [place] [employer]or for Jayda Solano
--- NOTE | 2025-02-23 17:29 | CTR_ITS ---
PROCEDURE INFORMATION: Exam: CT Lumbar Spine Without Contrast Exam date and time: 02/23/2025 5:43 PM Age: 54 years old Clinical indication: Low back pain; Additional info: Back pain, reports fecal incontinence TECHNIQUE: Imaging protocol: Computed tomography of the lumbar spine without contrast. Radiation optimization: All CT scans at this facility use at least one of these dose optimization techniques: automated exposure control; mA and/or kV adjustment per patient size (includes targeted exams where dose is matched to clinical indication); or iterative reconstruction. COMPARISON: CR XR thoracic spine 3V* [id number] 02/11/2025 3:19 PM RADIATION DOSE METRICS: Total DLP (mGy-cm): 768.76 FINDINGS: Bones/joints: There is normal anatomic alignment. No significant subluxation. There is a fracture through the left L2 transverse process which appears subacute in age. Vertebral bodies are normal in height without evidence for compression fracture. There is moderate to severe disc space narrowing at L5-S1 with endplate sclerosis, anterior and posterior spurs, and vacuum disc phenomenon. There is a broad-based disc bulge at this level. There is bilateral facet joint arthropathy. Findings appear to result in mild to moderate central canal stenosis and moderate to severe bilateral neural foraminal stenosis. There are mild degenerative changes at L4-L5. Soft tissues: There is atherosclerotic calcification of the abdominal aorta. CT/CT lumbar spine wo con* [id number] IMPRESSION: 1. Fracture through the left L2 transverse process, likely subacute in age. No vertebral body compression fracture seen. 2. Degenerative disc disease and spondylosis at L5-S1 with [id number] central canal stenosis and moderate to severe bilateral neural foraminal stenosis secondary to posterior osteophytic spurring, broad-based disc bulge, and facet joint arthropathy.
[2025-02-23 18:07] LABS: Basophils # 0.1 10^3/uL (0.0-0.1); Basophils % 0.7 %; Eosinophils # 0.2 10^3/uL (0.0-0.8); Eosinophils % 1.8 %; Hematocrit 45.7 % (36-47); Lymphocytes # 3.5 10^3/uL (0.8-4.8); Lymphocytes % 29.3 %; Mean Corpuscular HGB Conc 33.7 g/dL (30-55); Mean Corpuscular Hemoglobin 32.8 pg (27-33); Mean Corpuscular Volume 97.2 fl (85-98); Mean Platelet Volume 10.5 fL (7.4-10.4); Monocytes # 0.8 10^3/uL (0.2-0.9); Monocytes % 6.4 %; Neutrophils # 7.29 10^3/uL (1.8-7.7); Neutrophils % 61.5 %; Nucleated Red Blood Cells % 0 %; Platelet Count 330 10^3/cmm (157-399); Red Cell Distribution Width 12.6 % (12.1-15.1); White Blood Count 11.86 10^3/uL (3.29-11.43)
[2025-02-23 18:17] LABS: Bilirubin Urine Negative (Negative); Blood Urine 2+ (Negative); Glucose Urine UA Negative (Normal); Ketones Urine Negative (Negative); Leukocyte Esterase Urine 1+ (Negative); Nitrate Urine Negative (Negative); Protein Urine 3+ (Negative); Specific Gravity, Urine 1.008 (1.005-1.030); Urine Appearance Clear (CLEAR); Urine Color Yellow (Yellow); Urobilinogen Urine 0.2 mg/dL (Negative)
[2025-02-23 18:21] LABS: Add Urine Microscopic? YES; Bacteria Urine Trace /hpf; Hyaline Casts Urine 1.21 /lpf; RBC Urine 0-2 /hpf (0-2); Squamous Epithelial Cell Urine 0-5 /hpf (0-5); WBC Urine 21-50 /hpf (0-5)
[2025-02-23 18:23] LABS: Alanine Aminotransferase 34 U/L (0-33); Albumin Level 4.2 g/dL (3.5-5.2); Alkaline Phosphatase 121 U/L (35-105); Anion Gap 19.6 (5-19); Aspartate Amino Transferase 79 U/L (0-32); Blood Urea Nitrogen 19 mg/dL (6-20); Calcium 10.1 mg/dL (8.5-10.5); Carbon Dioxide 25 mmol/L (22-29); Chloride 95 mmol/L (98-107); Creatinine Clr Calc Pharmacy 86.8952; Glomerular Filtration Rate 51.6 mL/min (90-130); Glucose 173 mg/dL (65-115); Osmolality Calculated 288 mOsm/kg (285-295); Potassium 3.6 mmol/L (3.5-5.1); Sodium 136 mmol/L (136-145); Total Bilirubin 1.1 mg/dL (0.15-1.2); Total Protein 7.2 g/dL (6.6-8.7)
[2025-02-23 18:25] LABS: Add Urine Culture? Yes
[2025-02-23] MEDS: ketorolac 30 mg/mL INJ IM (19:18)
[2025-02-23] MEDS: cefTRIAXone 1,000 MG in water for injection-sterile 2.1 ML 1 MG IM (19:19)
[2025-02-23 19:31] VITALS: BP 142/86; PULSE 72; RESP 16; O2SAT 94
== END 2025-02-23 19:51 | disposition home or self-care (01) ==
PROVIDERS: Emergency Provider Physician Assistant; PCP Nurse Practitioner Family
DX: S32.028A Other fracture of second lumbar vertebra, initial encounter for closed fracture (principal); N39.0 Urinary tract infection, site not specified; Z79.82 Long term (current) use of aspirin; Z79.4 Long term (current) use of insulin; F17.210 Nicotine dependence, cigarettes, uncomplicated; W19.XXXA Unspecified fall, initial encounter
CPT/HCPCS: 36415; 72131; 80053; 81001; 85025; 87086; 96372; 99284; J0696; J1885

== ENCOUNTER → 2025-04-09 14:45 | Outpatient (BNVA) | payer MEDICARE, MEDICAID, SELFPAY | PROVIDERS: PCP Nurse Practitioner Family; Visit Provider Orthopaedic Surgery | DX: S32.029A Unspecified fracture of second lumbar vertebra, initial encounter for closed fracture (principal); X58.XXXA Exposure to other specified factors, initial encounter | CPT/HCPCS: 72100; 99203 ==

== ENCOUNTER → 2025-05-19 13:27 | Outpatient (BNVA) | payer MEDICARE, MEDICAID, SELFPAY | PROVIDERS: PCP Nurse Practitioner Family; Visit Provider Orthopaedic Surgery | DX: S32.009D Unspecified fracture of unspecified lumbar vertebra, subsequent encounter for fracture with routine healing (principal); X58.XXXD Exposure to other specified factors, subsequent encounter | CPT/HCPCS: 72100; 99024; 99213 ==

== ENCOUNTER → 2025-05-28 11:50 | Outpatient (BNVA) | payer MEDICARE, MEDICAID, SELFPAY | PROVIDERS: PCP Nurse Practitioner Family; Referring Provider Nurse Practitioner Family; Visit Provider Internal Medicine | DX: E11.9 Type 2 diabetes mellitus without complications (principal); E03.9 Hypothyroidism, unspecified | CPT/HCPCS: 36415; 80053; 80061; 82044; 83036; 84439; 84443 ==

== ENCOUNTER → 2025-06-23 14:28 | Outpatient (BNVA) | payer MEDICARE, MEDICAID, SELFPAY | PROVIDERS: PCP Nurse Practitioner Family; Visit Provider Nurse Practitioner Family | DX: L73.9 Follicular disorder, unspecified (principal); L71.8 Other rosacea; L81.4 Other melanin hyperpigmentation; L57.8 Other skin changes due to chronic exposure to nonionizing radiation; D22.5 Melanocytic nevi of trunk | CPT/HCPCS: 99203 ==

== ENCOUNTER 2025-06-24 08:27 | Outpatient (CLI) | payer MEDICARE, MEDICAID, SELFPAY | END 2025-06-24 08:28 | disposition home or self-care (01) | LOC: LAB 08:28 | PROVIDERS: PCP Nurse Practitioner Family; Visit Provider Internal Medicine | DX: E11.9 Type 2 diabetes mellitus without complications (principal) | CPT/HCPCS: 36415; 83036 ==

== ENCOUNTER → 2025-06-25 11:36 | Outpatient (BNVA) | payer MEDICARE, MEDICAID, SELFPAY | PROVIDERS: PCP Nurse Practitioner Family; Visit Provider Internal Medicine | DX: E11.9 Type 2 diabetes mellitus without complications (principal); E78.2 Mixed hyperlipidemia; Z79.4 Long term (current) use of insulin; Z79.85 Long-term (current) use of injectable non-insulin antidiabetic drugs | CPT/HCPCS: 99214 ==

== ENCOUNTER 2025-08-21 08:17 | Outpatient (CLI) | payer MEDICARE, MEDICAID, SELFPAY ==
[2025-08-21 09:23] LABS: Estmated Average Glucose 177; Hemoglobin A1C 7.8 % (4.0-6.0)
[2025-08-21 09:43] LABS: Alanine Aminotransferase 15 U/L (0-33); Albumin Level 4.4 g/dL (3.5-5.2); Alkaline Phosphatase 98 U/L (35-105); Anion Gap 17.4 (5-19); Aspartate Amino Transferase 19 U/L (0-32); Blood Urea Nitrogen 23 mg/dL (6-20); Calcium 9.5 mg/dL (8.5-10.5); Carbon Dioxide 25 mmol/L (22-29); Chloride 102 mmol/L (98-107); Cholesterol 87 mg/dL (0-200); Free T4 Free Thyroxine 2.15 ng/dL (0.82-1.77); Globulin 2.7 g/dL (1.3-4.6); Glucose 150 mg/dL (65-115); HDL Cholesterol 23 mg/dL (60-100); Osmolality Calculated 297 mOsm/kg (285-295); Potassium 4.4 mmol/L (3.5-5.1); Sodium 140 mmol/L (136-145); Thyroid Stimulating Hormone 0.06 uIU/mL (0.27-4.20); Total Protein 7.1 g/dL (6.6-8.7); Triglycerides 162 mg/dL (0-150)
== END 2025-08-21 08:18 | disposition home or self-care (01) ==
LOC: LAB 08:19
PROVIDERS: PCP Internal Medicine; Visit Provider Internal Medicine
DX: E78.2 Mixed hyperlipidemia (principal); E11.9 Type 2 diabetes mellitus without complications
CPT/HCPCS: 36415; 80053; 80061; 83036; 84439; 84443